=== PATIENT | male | born 1980 | race Caucasian/White ===

== ENCOUNTER 2017-10-30 15:22 | Inpatient (IN) | payer OTHER ==
[2017-10-30 16:35] LABS: HEMOGLOBIN 15.8 g/dl (14.0-18.0); MEAN CORPUSCULAR HEMOGLOBIN 30.7 pg (27.0-33.0); MEAN CORPUSCULAR HGB CONC 36.7 g/dl (32.0-36.5); MEAN CORPUSCULAR VOLUME 83.7 fl (80.0-96.0); PLATELET COUNT, AUTOMATED 458 10^3/uL (150-450); RED BLOOD COUNT 5.14 10^6/uL (4.30-6.10); RED CELL DISTRIBUTION WIDTH 11.6 % (11.5-14.5); WHITE BLOOD COUNT 13.5 10^3/uL (4.0-10.0)
[2017-10-30 17:05] LABS: ALBUMIN 4.7 GM/DL (3.2-5.2); ALBUMIN/GLOBULIN RATIO 1.09 (1.00-1.93); ALKALINE PHOSPHATASE 68 U/L (45-117); ALT/SGPT 25 U/L (12-78); ANION GAP 9 MEQ/L (8-16); AST/SGOT 18 U/L (7-37); BILIRUBIN,DIRECT 0.5 MG/DL (0.0-0.2); BILIRUBIN,TOTAL 1.7 MG/DL (0.2-1.0); BLOOD UREA NITROGEN 11 MG/DL (7-18); CALCIUM LEVEL 9.7 MG/DL (8.5-10.1); CARBON DIOXIDE LEVEL 29 MEQ/L (21-32); CHLORIDE LEVEL 99 MEQ/L (98-107); CREATININE FOR GFR 1.08 MG/DL (0.70-1.30); ETHYL ALCOHOL (ETHANOL) 0.003 % (0.000-0.010); GLOMERULAR FILTRATION RATE > 60.0 (>60); GLUCOSE, FASTING 91 MG/DL (70-105); POTASSIUM SERUM 3.3 MEQ/L (3.5-5.1); SODIUM LEVEL 137 MEQ/L (136-145)
[2017-10-30 17:16] LABS: ACETAMINOPHEN LEVEL < 2.0 UG/ML (10.0-30.0); SALICYLATE LEVEL < 1.7 MG/DL (5.0-30.0)
[2017-10-30 17:23] LABS: AMPHETAMINES LEVEL URINE NEGATIVE (NEGATIVE); BARBITURATES URINE NEGATIVE (NEGATIVE); BENZODIAZEPINES URINE NEGATIVE (NEGATIVE); CANNABINOIDS URINE NEGATIVE (NEGATIVE); COCAINE METABOLITE URINE NEGATIVE (NEGATIVE); METHADONE URINE NEGATIVE (NEGATIVE); OPIATES URINE NEGATIVE (NEGATIVE); PHENCYCLIDINE URINE NEGATIVE (NEGATIVE)
[2017-10-30] MEDS: POTASSIUM CHLORIDE 10 MEQ SR TABLET PO (17:45)
[2017-10-30] MEDS ORDERED: MAALOX 30 ML SUSP *UDC PO (18:45)
[2017-10-30] MEDS ORDERED: ACETAMINOPHEN TAB 650MG DOSE (2X325MG) PO (18:45)
[2017-10-30] MEDS ORDERED: MOM 30ML SUSPENSION UDC PO (18:45)
[2017-10-30] MEDS: traZODone 50 MG TAB PO (22:08)
[2017-10-31] MEDS: SERTRALINE HCL 50 MG TAB PO (10:14)
[2017-10-31] MEDS: clonazePAM 0.5 MG TAB PO ×2 (10:14→20:28)
[2017-10-31] MEDS: traZODone 50 MG TAB PO (20:29)
[2017-11-01] MEDS: clonazePAM 0.5 MG TAB PO ×3 (08:40→22:43)
[2017-11-01] MEDS: SERTRALINE HCL 50 MG TAB PO (08:40)
[2017-11-01] MEDS: INFLUENZA QUADRIVALENT PF VACCINE 0.5ML SYRINGE (90686) IM (08:41)
[2017-11-01] MEDS: traZODone 100 MG TAB PO (21:25)
[2017-11-01] MEDS: BLISTEX OINTMENT TOP (22:47)
[2017-11-02 07:32] LABS: ALBUMIN 3.4 GM/DL (3.2-5.2); ALBUMIN/GLOBULIN RATIO 0.92 (1.00-1.93); ALKALINE PHOSPHATASE 57 U/L (45-117); ALT/SGPT 21 U/L (12-78); ANION GAP 10 MEQ/L (8-16); AST/SGOT 10 U/L (7-37); BILIRUBIN,TOTAL 0.3 MG/DL (0.2-1.0); BLOOD UREA NITROGEN 13 MG/DL (7-18); CALCIUM LEVEL 8.4 MG/DL (8.5-10.1); CARBON DIOXIDE LEVEL 27 MEQ/L (21-32); CHLORIDE LEVEL 104 MEQ/L (98-107); CREATININE FOR GFR 0.88 MG/DL (0.70-1.30); GLOMERULAR FILTRATION RATE > 60.0 (>60); GLUCOSE, FASTING 99 MG/DL (70-105); POTASSIUM SERUM 3.4 MEQ/L (3.5-5.1); SODIUM LEVEL 141 MEQ/L (136-145); TOTAL PROTEIN 7.1 GM/DL (6.4-8.2)
[2017-11-02] MEDS: BLISTEX OINTMENT TOP ×4 (09:03→22:12)
[2017-11-02] MEDS: SERTRALINE HCL 50 MG TAB PO (09:03)
[2017-11-02] MEDS: clonazePAM 0.5 MG TAB PO ×3 (09:05→22:11)
[2017-11-02] MEDS: traZODone 100 MG TAB PO (22:11)
[2017-11-03] MEDS: BLISTEX OINTMENT TOP ×4 (08:59→20:29)
[2017-11-03] MEDS: SERTRALINE HCL 50 MG TAB PO (09:00)
[2017-11-03] MEDS: clonazePAM 0.5 MG TAB PO (09:39)
[2017-11-03] MEDS ORDERED: clonazePAM 0.5 MG TAB PO (13:15)
[2017-11-03] MEDS: clonazePAM 1 MG TAB PO ×2 (15:02→20:29)
[2017-11-03] MEDS: traZODone 100 MG TAB PO (20:29)
[2017-11-04] MEDS: clonazePAM 1 MG TAB PO ×2 (08:21→21:27)
[2017-11-04] MEDS: SERTRALINE HCL 50 MG TAB PO (08:22)
[2017-11-04] MEDS: BLISTEX OINTMENT TOP ×4 (08:22→21:27)
[2017-11-04] MEDS: traZODone 100 MG TAB PO (21:27)
[2017-11-04] MEDS: GABAPENTIN 300 MG CAP PO (21:27)
[2017-11-05] MEDS: BLISTEX OINTMENT TOP ×4 (09:26→20:58)
[2017-11-05] MEDS: GABAPENTIN 300 MG CAP PO ×2 (09:26→20:58)
[2017-11-05] MEDS: SERTRALINE HCL 50 MG TAB PO (09:26)
[2017-11-05] MEDS: clonazePAM 1 MG TAB PO ×2 (09:28→20:58)
[2017-11-05] MEDS: traZODone 100 MG TAB PO (20:58)
[2017-11-06] MEDS: GABAPENTIN 300 MG CAP PO ×2 (08:58→20:32)
[2017-11-06] MEDS: SERTRALINE 100 MG TAB PO (08:58)
[2017-11-06] MEDS: BLISTEX OINTMENT TOP ×4 (08:58→20:33)
[2017-11-06] MEDS: clonazePAM 1 MG TAB PO ×2 (08:58→20:32)
[2017-11-06] MEDS: traZODone 100 MG TAB PO (20:31)
[2017-11-07] MEDS: SERTRALINE 100 MG TAB PO (08:46)
[2017-11-07] MEDS: GABAPENTIN 300 MG CAP PO ×2 (08:46→21:00)
[2017-11-07] MEDS: clonazePAM 1 MG TAB PO (08:47)
[2017-11-07] MEDS: BLISTEX OINTMENT TOP ×4 (08:47→21:00)
[2017-11-07] MEDS: traZODone 100 MG TAB PO (21:00)
[2017-11-08] MEDS: SERTRALINE 100 MG TAB PO (08:02)
[2017-11-08] MEDS: GABAPENTIN 300 MG CAP PO ×2 (08:02→21:57)
[2017-11-08] MEDS: diphenhydrAMINE 50 MG CAP PO (08:02)
[2017-11-08] MEDS: BLISTEX OINTMENT TOP ×4 (08:02→22:30)
[2017-11-08] MEDS: clonazePAM 1 MG TAB PO ×2 (08:04→21:57)
[2017-11-08] MEDS: traZODone 100 MG TAB PO (21:57)
[2017-11-09] MEDS: SERTRALINE 100 MG TAB PO (08:18)
[2017-11-09] MEDS: GABAPENTIN 300 MG CAP PO (08:18)
[2017-11-09] MEDS: clonazePAM 1 MG TAB PO ×2 (08:19→21:00)
[2017-11-09] MEDS: BLISTEX OINTMENT TOP ×4 (08:30→21:00)
[2017-11-09] MEDS: diphenhydrAMINE 25 MG CAP PO ×2 (13:40→21:00)
[2017-11-09] MEDS ORDERED: diphenhydrAMINE 50 MG CAP PO (13:45)
[2017-11-09] MEDS: diphenhydrAMINE 50 MG CAP PO (16:09)
[2017-11-09] MEDS: traZODone 100 MG TAB PO (21:00)
[2017-11-10] MEDS: BLISTEX OINTMENT TOP ×4 (09:00→20:22)
[2017-11-10] MEDS: SERTRALINE 100 MG TAB PO (16:58)
[2017-11-10] MEDS: traZODone 100 MG TAB PO (20:23)
[2017-11-10] MEDS: clonazePAM 1 MG TAB PO (20:23)
[2017-11-10] MEDS: diphenhydrAMINE 25 MG CAP PO (21:15)
[2017-11-11] MEDS: SERTRALINE 100 MG TAB PO (09:00)
[2017-11-11] MEDS: BLISTEX OINTMENT TOP ×4 (09:00→20:43)
[2017-11-11] MEDS: guanFACINE 1 MG TAB PO (15:07)
[2017-11-11] MEDS: diphenhydrAMINE 25 MG CAP PO (19:03)
[2017-11-11] MEDS: traZODone 100 MG TAB PO (21:31)
[2017-11-11] MEDS: clonazePAM 1 MG TAB PO (21:31)
[2017-11-12] MEDS: BLISTEX OINTMENT TOP ×4 (08:52→20:32)
[2017-11-12] MEDS: FLUoxetine 10 MG CAP PO (11:42)
[2017-11-12] MEDS: guanFACINE 1 MG TAB PO (13:09)
[2017-11-12] MEDS: traZODone 100 MG TAB PO (20:31)
[2017-11-12] MEDS: clonazePAM 1 MG TAB PO (20:31)
[2017-11-13] MEDS: BLISTEX OINTMENT TOP ×4 (08:36→21:00)
[2017-11-13] MEDS: FLUoxetine 10 MG CAP PO (08:45)
[2017-11-13] MEDS: clonazePAM 1 MG TAB PO ×2 (08:47→22:11)
[2017-11-13] MEDS: guanFACINE 1 MG TAB PO (08:47)
[2017-11-13] MEDS: traZODone 100 MG TAB PO (21:59)
[2017-11-14] MEDS: FLUoxetine 10 MG CAP PO (08:17)
[2017-11-14] MEDS: guanFACINE 1 MG TAB PO (08:18)
[2017-11-14] MEDS: BLISTEX OINTMENT TOP ×4 (08:18→20:28)
[2017-11-14] MEDS: clonazePAM 1 MG TAB PO ×2 (09:05→20:13)
[2017-11-14] MEDS: traZODone 100 MG TAB PO (20:13)
[2017-11-14] MEDS ORDERED: HALOPERIDOL 5 MG/ML VIAL (J1630) As Ordered (23:41)
[2017-11-15] MEDS: FLUoxetine 10 MG CAP PO (08:04)
[2017-11-15] MEDS: BLISTEX OINTMENT TOP ×4 (08:05→20:34)
[2017-11-15] MEDS: guanFACINE 1 MG TAB PO (08:05)
[2017-11-15] MEDS: clonazePAM 1 MG TAB PO (11:19)
[2017-11-15] MEDS: traZODone 100 MG TAB PO (20:39)
[2017-11-16] MEDS: guanFACINE 1 MG TAB PO ×2 (09:00→10:22)
[2017-11-16] MEDS: FLUoxetine 10 MG CAP PO (10:21)
[2017-11-16] MEDS: BLISTEX OINTMENT TOP ×4 (10:22→21:00)
[2017-11-16] MEDS: clonazePAM 1 MG TAB PO ×2 (10:23→17:55)
[2017-11-16] MEDS: traZODone 100 MG TAB PO (21:45)
[2017-11-17] MEDS: BLISTEX OINTMENT TOP ×4 (09:00→21:35)
[2017-11-17] MEDS: guanFACINE 1 MG TAB PO (09:01)
[2017-11-17] MEDS: clonazePAM 1 MG TAB PO ×2 (09:01→21:33)
[2017-11-17] MEDS: FLUoxetine 10 MG CAP PO (09:01)
[2017-11-17] MEDS: traZODone 100 MG TAB PO (21:33)
[2017-11-18] MEDS: FLUoxetine 10 MG CAP PO (08:46)
[2017-11-18] MEDS: clonazePAM 1 MG TAB PO ×2 (08:46→21:14)
[2017-11-18] MEDS: guanFACINE 1 MG TAB PO (08:48)
[2017-11-18] MEDS: BLISTEX OINTMENT TOP ×4 (08:48→21:00)
[2017-11-18] MEDS: traZODone 100 MG TAB PO (21:14)
[2017-11-18] MEDS: PRAZOSIN 1 MG CAP PO (21:15)
[2017-11-19] MEDS: FLUoxetine 10 MG CAP PO (08:21)
[2017-11-19] MEDS: BLISTEX OINTMENT TOP ×4 (08:21→21:39)
[2017-11-19] MEDS: guanFACINE 1 MG TAB PO (08:21)
[2017-11-19] MEDS: clonazePAM 1 MG TAB PO ×2 (17:00→21:39)
[2017-11-19] MEDS: PRAZOSIN 1 MG CAP PO (21:39)
[2017-11-19] MEDS: traZODone 100 MG TAB PO (21:39)
[2017-11-20] MEDS: FLUoxetine 10 MG CAP PO (08:19)
[2017-11-20] MEDS: guanFACINE 1 MG TAB PO (08:21)
[2017-11-20] MEDS: BLISTEX OINTMENT TOP ×4 (08:22→20:44)
[2017-11-20] MEDS: clonazePAM 1 MG TAB PO (20:43)
[2017-11-20] MEDS: PRAZOSIN 1 MG CAP PO (20:43)
[2017-11-20] MEDS: traZODone 50 MG TAB PO (20:44)
[2017-11-21] MEDS: FLUoxetine 10 MG CAP PO (08:15)
[2017-11-21] MEDS: guanFACINE 1 MG TAB PO (08:15)
[2017-11-21] MEDS: BLISTEX OINTMENT TOP ×4 (08:16→21:00)
[2017-11-21] MEDS: METHYLPHENIDATE ER 18 MG TABLET (CONCERTA) PO (09:00)
[2017-11-21] MEDS: clonazePAM 1 MG TAB PO (21:39)
[2017-11-21] MEDS: traZODone 50 MG TAB PO (21:39)
[2017-11-21] MEDS: PRAZOSIN 1 MG CAP PO (21:41)
[2017-11-22] MEDS: FLUoxetine 10 MG CAP PO (09:06)
[2017-11-22] MEDS: METHYLPHENIDATE ER 18 MG TABLET (CONCERTA) PO (09:06)
[2017-11-22] MEDS: BLISTEX OINTMENT TOP ×4 (09:06→21:00)
[2017-11-22] MEDS: guanFACINE 1 MG TAB PO (09:07)
[2017-11-22] MEDS: traZODone 50 MG TAB PO (21:23)
[2017-11-22] MEDS: PRAZOSIN 1 MG CAP PO (21:24)
[2017-11-22] MEDS: clonazePAM 1 MG TAB PO (21:25)
[2017-11-23] MEDS: BLISTEX OINTMENT TOP (09:08)
[2017-11-23] MEDS: FLUoxetine 10 MG CAP PO (09:08)
[2017-11-23] MEDS: METHYLPHENIDATE ER 18 MG TABLET (CONCERTA) PO (09:08)
== END 2017-11-23 13:10 | disposition home or self-care (01) | DRG 882 ==
LOC: M ED 15:22 → M ED INP 18:31 → M PSY 19:14
DX: F43.23 Adjustment disorder with mixed anxiety and depressed mood (principal); G47.00 Insomnia, unspecified; F10.10 Alcohol abuse, uncomplicated; F41.9 Anxiety disorder, unspecified; R21 Rash and other nonspecific skin eruption; F19.10 Other psychoactive substance abuse, uncomplicated; Z56.0 Unemployment, unspecified; Z63.5 Disruption of family by separation and divorce; F43.25 Adjustment disorder with mixed disturbance of emotions and conduct; F43.10 Post-traumatic stress disorder, unspecified

== ENCOUNTER 2017-12-04 17:18 | Inpatient (IN) | payer OTHER ==
[2017-12-04] MEDS: NS 1,000 ML IV (18:11)
[2017-12-04 18:22] LABS: HEMATOCRIT 36.3 % (42.0-52.0); HEMOGLOBIN 12.7 g/dl (14.0-18.0); MEAN CORPUSCULAR HEMOGLOBIN 30.9 pg (27.0-33.0); MEAN CORPUSCULAR VOLUME 88.3 fl (80.0-96.0); PLATELET COUNT, AUTOMATED 223 10^3/uL (150-450); RED BLOOD COUNT 4.11 10^6/uL (4.30-6.10); VENOUS BASE EXCESS 1.2 (-2.0-2.0); VENOUS HCO3 26.5 MEQ/L (23.0-27.0); VENOUS O2 SATURATION 88.7 % (60.0-80.0); VENOUS PARTIAL PRESSURE CO2 44.5 mmHg (38.0-50.0); VENOUS PH 7.392 UNITS (7.330-7.430); VENOUS STANDARD HCO3 25.3 MEQ/L; VENOUS TOTAL CO2 27.8 MEQ/L (24.0-28.0); WHITE BLOOD COUNT 4.9 10^3/uL (4.0-10.0)
[2017-12-04 18:43] LABS: OSMOLALITY SERUM 286 MOSM/KG (275-295)
[2017-12-04 18:50] LABS: ALBUMIN 4.7 GM/DL (3.2-5.2); ALBUMIN/GLOBULIN RATIO 1.52 (1.00-1.93); ALKALINE PHOSPHATASE 51 U/L (45-117); ALT/SGPT 16 U/L (12-78); ANION GAP 10 MEQ/L (8-16); AST/SGOT 12 U/L (7-37); BILIRUBIN,DIRECT 0.2 MG/DL (0.0-0.2); BILIRUBIN,TOTAL 0.4 MG/DL (0.2-1.0); BLOOD UREA NITROGEN 6 MG/DL (7-18); CALCIUM LEVEL 8.8 MG/DL (8.5-10.1); CARBON DIOXIDE LEVEL 27 MEQ/L (21-32); CHLORIDE LEVEL 105 MEQ/L (98-107); CPK CREATINE PHOSPHOKINASE 133 U/L (39-308); CREATININE FOR GFR 0.94 MG/DL (0.70-1.30); GLOMERULAR FILTRATION RATE > 60.0 (>60); GLUCOSE, FASTING 120 MG/DL (70-105); SALICYLATE LEVEL < 1.7 MG/DL (5.0-30.0); SODIUM LEVEL 142 MEQ/L (136-145); THYROID STIMULATING HORMONE 0.976 uIU/ML (0.358-3.740); TOTAL PROTEIN 7.8 GM/DL (6.4-8.2)
[2017-12-04 19:00] LABS: ACETAMINOPHEN LEVEL < 2.0 UG/ML (10.0-30.0); ETHYL ALCOHOL (ETHANOL) < 0.003 % (0.000-0.010)
[2017-12-04 19:01] LABS: POTASSIUM SERUM 2.6 MEQ/L (3.5-5.1)
[2017-12-04 19:10] LABS: AMPHETAMINES LEVEL URINE NEGATIVE (NEGATIVE); BARBITURATES URINE NEGATIVE (NEGATIVE); BENZODIAZEPINES URINE NEGATIVE (NEGATIVE); CANNABINOIDS URINE NEGATIVE (NEGATIVE); COCAINE METABOLITE URINE NEGATIVE (NEGATIVE); METHADONE URINE NEGATIVE (NEGATIVE); OPIATES URINE NEGATIVE (NEGATIVE); PHENCYCLIDINE URINE NEGATIVE (NEGATIVE)
[2017-12-04] MEDS: POTASSIUM CHLORIDE 10 MEQ SR TABLET PO (19:14)
[2017-12-04] MEDS ORDERED: ACETAMINOPHEN TAB 650MG DOSE (2X325MG) PO (20:00)
[2017-12-04] MEDS ORDERED: ONDANSETRON 4MG/2ML VIAL (J2405) IV (20:00)
[2017-12-04] MEDS: DOCUSATE SODIUM 100 MG CAP PO (21:00)
[2017-12-04 21:16] LABS: ALBUMIN 4.2 GM/DL (3.2-5.2); ANION GAP 5 MEQ/L (8-16); BLOOD UREA NITROGEN 5 MG/DL (7-18); CALCIUM LEVEL 8.7 MG/DL (8.5-10.1); CARBON DIOXIDE LEVEL 29 MEQ/L (21-32); CHLORIDE LEVEL 108 MEQ/L (98-107); CREATININE FOR GFR 0.77 MG/DL (0.70-1.30); GLOMERULAR FILTRATION RATE > 60.0 (>60); GLUCOSE, FASTING 74 MG/DL (70-105); POTASSIUM SERUM 3.4 MEQ/L (3.5-5.1); SODIUM LEVEL 142 MEQ/L (136-145)
[2017-12-05] MEDS: POTASSIUM CHLORIDE 10 MEQ SR TABLET PO (01:44)
[2017-12-05 07:18] LABS: HEMATOCRIT 36.4 % (42.0-52.0); HEMOGLOBIN 12.3 g/dl (14.0-18.0); MEAN CORPUSCULAR HEMOGLOBIN 29.9 pg (27.0-33.0); MEAN CORPUSCULAR HGB CONC 33.8 g/dl (32.0-36.5); MEAN CORPUSCULAR VOLUME 88.3 fl (80.0-96.0); PLATELET COUNT, AUTOMATED 253 10^3/uL (150-450); RED BLOOD COUNT 4.12 10^6/uL (4.30-6.10); RED CELL DISTRIBUTION WIDTH 12.4 % (11.5-14.5); WHITE BLOOD COUNT 8.4 10^3/uL (4.0-10.0)
[2017-12-05 07:53] LABS: ANION GAP 6 MEQ/L (8-16); BLOOD UREA NITROGEN 5 MG/DL (7-18); CALCIUM LEVEL 8.7 MG/DL (8.5-10.1); CARBON DIOXIDE LEVEL 30 MEQ/L (21-32); CHLORIDE LEVEL 109 MEQ/L (98-107); CREATININE FOR GFR 0.92 MG/DL (0.70-1.30); GLOMERULAR FILTRATION RATE > 60.0 (>60); GLUCOSE, FASTING 77 MG/DL (70-105); POTASSIUM SERUM 3.9 MEQ/L (3.5-5.1); SODIUM LEVEL 145 MEQ/L (136-145)
[2017-12-05] MEDS: DOCUSATE SODIUM 100 MG CAP PO ×2 (08:50→20:25)
[2017-12-05] MEDS: ENOXAPARIN 40 MG/0.4 ML SYRINGE (J1650) SC (08:51)
[2017-12-06 05:29] LABS: HEMATOCRIT 38.7 % (42.0-52.0); HEMOGLOBIN 12.9 g/dl (14.0-18.0); MEAN CORPUSCULAR HEMOGLOBIN 30.8 pg (27.0-33.0); MEAN CORPUSCULAR HGB CONC 33.3 g/dl (32.0-36.5); MEAN CORPUSCULAR VOLUME 92.4 fl (80.0-96.0); PLATELET COUNT, AUTOMATED 237 10^3/uL (150-450); RED BLOOD COUNT 4.19 10^6/uL (4.30-6.10); RED CELL DISTRIBUTION WIDTH 12.6 % (11.5-14.5); WHITE BLOOD COUNT 6.8 10^3/uL (4.0-10.0)
[2017-12-06 05:46] LABS: ANION GAP 4 MEQ/L (8-16); BLOOD UREA NITROGEN 14 MG/DL (7-18); CALCIUM LEVEL 8.9 MG/DL (8.5-10.1); CARBON DIOXIDE LEVEL 33 MEQ/L (21-32); CHLORIDE LEVEL 105 MEQ/L (98-107); CREATININE FOR GFR 1.13 MG/DL (0.70-1.30); GLOMERULAR FILTRATION RATE > 60.0 (>60); GLUCOSE, FASTING 97 MG/DL (70-105); POTASSIUM SERUM 4.1 MEQ/L (3.5-5.1); SODIUM LEVEL 142 MEQ/L (136-145)
[2017-12-06] MEDS: ENOXAPARIN 40 MG/0.4 ML SYRINGE (J1650) SC (09:00)
[2017-12-06] MEDS: DOCUSATE SODIUM 100 MG CAP PO ×2 (09:00→20:38)
== END 2017-12-06 22:07 | DRG 918 ==
LOC: M PCU 12-05 15:20 → M ED 17:18 → M ED INP 20:00
DX: T43.212A Poisoning by selective serotonin and norepinephrine reuptake inhibitors, intentional self-harm, initial encounter (principal); T44.6X2A Poisoning by alpha-adrenoreceptor antagonists, intentional self-harm, initial encounter; F43.21 Adjustment disorder with depressed mood; F43.10 Post-traumatic stress disorder, unspecified; F43.24 Adjustment disorder with disturbance of conduct; E87.6 Hypokalemia; Z79.899 Other long term (current) drug therapy; Y92.009 Unspecified place in unspecified non-institutional (private) residence as the place of occurrence of the external cause

== ENCOUNTER 2017-12-06 22:08 | Inpatient (IN) | payer OTHER, SELFPAY ==
[2017-12-06] MEDS: PRAZOSIN 1 MG CAP PO ×2 (21:00)
[2017-12-07] MEDS ORDERED: clonazePAM 0.5 MG TAB PO ×2 (00:15)
[2017-12-07] MEDS ORDERED: MOM 30ML SUSPENSION UDC PO ×2 (00:15)
[2017-12-07] MEDS ORDERED: MAALOX 30 ML SUSP *UDC PO ×2 (00:15)
[2017-12-07] MEDS: METHYLPHENIDATE ER 18 MG TABLET (CONCERTA) PO ×2 (09:00)
[2017-12-07] MEDS: FLUoxetine 10 MG CAP PO ×2 (09:00)
[2017-12-07] MEDS: busPIRone 5 MG TAB PO ×6 (10:22→21:14)
[2017-12-07] MEDS: buPROPion **XL** TABLET 150MG (WELLBUTRIN XL) PO ×2 (10:22)
[2017-12-07] MEDS: traZODone 50 MG TAB PO ×2 (21:14)
[2017-12-07] MEDS: PRAZOSIN 1 MG CAP PO ×2 (21:14)
[2017-12-08] MEDS: busPIRone 5 MG TAB PO ×6 (08:17→21:18)
[2017-12-08] MEDS: buPROPion **XL** TABLET 150MG (WELLBUTRIN XL) PO ×2 (08:17)
[2017-12-08] MEDS: **PENDING PPD ENTRY XX ×2 (09:00)
[2017-12-08] MEDS ORDERED: TUBERCULIN PPD 5 UNITS/0.1 ML ID ×2 (10:45)
[2017-12-08] MEDS: PRAZOSIN 1 MG CAP PO ×2 (21:18)
[2017-12-08] MEDS: traZODone 50 MG TAB PO ×2 (22:14)
[2017-12-09] MEDS: busPIRone 5 MG TAB PO ×6 (08:26→21:22)
[2017-12-09] MEDS: buPROPion **XL** TABLET 150MG (WELLBUTRIN XL) PO ×2 (08:26)
[2017-12-09] MEDS: VITAMIN D (CHOLECALCIFEROL) 400 INTERNATIONAL UNITS TAB PO ×2 (09:00)
[2017-12-09] MEDS: **PENDING PPD ENTRY XX ×4 (09:00)
[2017-12-09] MEDS: TUBERCULIN PPD 5 UNITS/0.1 ML ID ×2 (11:17)
[2017-12-09 12:11] LABS: ANION GAP 7 MEQ/L (8-16); BLOOD UREA NITROGEN 13 MG/DL (7-18); CALCIUM LEVEL 9.4 MG/DL (8.5-10.1); CARBON DIOXIDE LEVEL 32 MEQ/L (21-32); CHLORIDE LEVEL 102 MEQ/L (98-107); CREATININE FOR GFR 0.88 MG/DL (0.70-1.30); GLOMERULAR FILTRATION RATE > 60.0 (>60); GLUCOSE, FASTING 72 MG/DL (70-100); POTASSIUM SERUM 4.2 MEQ/L (3.5-5.1); SODIUM LEVEL 141 MEQ/L (136-145)
[2017-12-09 12:27] LABS: VITAMIN B12 LEVEL 403 PG/ML (247-911)
[2017-12-09] MEDS: NEPHRO-VIT TAB (NEPHROCAPS) PO ×2 (16:35)
[2017-12-09] MEDS: traZODone 50 MG TAB PO ×2 (21:22)
[2017-12-09] MEDS: PRAZOSIN 1 MG CAP PO ×2 (21:22)
[2017-12-10] MEDS: NEPHRO-VIT TAB (NEPHROCAPS) PO ×2 (08:13)
[2017-12-10] MEDS: VITAMIN D 50,000 UNITS CAPSULE (ERGOCALCIFEROL 1.25MG) PO ×2 (08:13)
[2017-12-10] MEDS: buPROPion **XL** TABLET 150MG (WELLBUTRIN XL) PO ×2 (08:13)
[2017-12-10] MEDS: busPIRone 5 MG TAB PO ×6 (08:13→21:30)
[2017-12-10] MEDS ORDERED: PPD DOCUMENTATION ENTRY MISC XX ×2 (10:00)
[2017-12-10] MEDS: traZODone 50 MG TAB PO ×2 (21:30)
[2017-12-10] MEDS: PRAZOSIN 1 MG CAP PO ×2 (21:30)
[2017-12-11] MEDS: NEPHRO-VIT TAB (NEPHROCAPS) PO ×2 (08:32)
[2017-12-11] MEDS: busPIRone 5 MG TAB PO ×6 (08:32→21:46)
[2017-12-11] MEDS: buPROPion **XL** TABLET 150MG (WELLBUTRIN XL) PO ×2 (08:32)
[2017-12-11] MEDS: PPD DOCUMENTATION ENTRY MISC XX ×2 (11:32)
[2017-12-11] MEDS: traZODone 50 MG TAB PO ×2 (21:46)
[2017-12-11] MEDS: PRAZOSIN 1 MG CAP PO ×2 (21:47)
[2017-12-12] MEDS: NEPHRO-VIT TAB (NEPHROCAPS) PO ×2 (08:41)
[2017-12-12] MEDS: buPROPion **XL** TABLET 150MG (WELLBUTRIN XL) PO ×2 (08:41)
[2017-12-12] MEDS: busPIRone 5 MG TAB PO ×6 (08:42→21:33)
[2017-12-12] MEDS: PRAZOSIN 1 MG CAP PO ×2 (21:34)
[2017-12-12] MEDS: traZODone 50 MG TAB PO ×2 (22:51)
[2017-12-13] MEDS: NEPHRO-VIT TAB (NEPHROCAPS) PO ×2 (08:42)
[2017-12-13] MEDS: buPROPion **XL** TABLET 150MG (WELLBUTRIN XL) PO ×2 (08:42)
[2017-12-13] MEDS: busPIRone 5 MG TAB PO ×6 (08:42→20:37)
[2017-12-13] MEDS: PRAZOSIN 1 MG CAP PO ×2 (20:37)
[2017-12-13] MEDS: traZODone 50 MG TAB PO ×2 (20:38)
[2017-12-14] MEDS: busPIRone 5 MG TAB PO ×6 (08:50→21:11)
[2017-12-14] MEDS: NEPHRO-VIT TAB (NEPHROCAPS) PO ×2 (08:50)
[2017-12-14] MEDS: buPROPion **XL** TABLET 150MG (WELLBUTRIN XL) PO ×2 (08:50)
[2017-12-14] MEDS ORDERED: clonazePAM 0.5 MG TAB PO ×2 (11:15)
[2017-12-14] MEDS: EUCERIN 120GM CREAM EXT ×2 (12:31)
[2017-12-14] MEDS: PRAZOSIN 1 MG CAP PO ×2 (21:12)
[2017-12-14] MEDS: traZODone 100 MG TAB PO ×2 (22:13)
[2017-12-15] MEDS: NEPHRO-VIT TAB (NEPHROCAPS) PO ×2 (08:03)
[2017-12-15] MEDS: buPROPion **XL** TABLET 150MG (WELLBUTRIN XL) PO ×2 (08:03)
[2017-12-15] MEDS: busPIRone 5 MG TAB PO ×6 (08:04→20:25)
[2017-12-15] MEDS: traZODone 100 MG TAB PO ×2 (22:30)
[2017-12-15] MEDS: PRAZOSIN 1 MG CAP PO ×2 (22:30)
[2017-12-16] MEDS: NEPHRO-VIT TAB (NEPHROCAPS) PO ×2 (08:04)
[2017-12-16] MEDS: buPROPion **XL** TABLET 150MG (WELLBUTRIN XL) PO ×2 (08:04)
[2017-12-16] MEDS: busPIRone 5 MG TAB PO ×6 (08:04→21:50)
[2017-12-16] MEDS: PRAZOSIN 1 MG CAP PO ×2 (21:50)
[2017-12-16] MEDS: traZODone 100 MG TAB PO ×2 (21:50)
[2017-12-17] MEDS: busPIRone 5 MG TAB PO ×2 (08:06)
[2017-12-17] MEDS: VITAMIN D 50,000 UNITS CAPSULE (ERGOCALCIFEROL 1.25MG) PO ×2 (08:06)
[2017-12-17] MEDS: buPROPion **XL** TABLET 150MG (WELLBUTRIN XL) PO ×2 (08:06)
[2017-12-17] MEDS: NEPHRO-VIT TAB (NEPHROCAPS) PO ×2 (08:06)
[2017-12-17] MEDS: busPIRone 10 MG TAB PO ×4 (16:34→21:59)
[2017-12-17] MEDS: ACETAMINOPHEN TAB 650MG DOSE (2X325MG) PO ×2 (18:53)
[2017-12-17] MEDS: traZODone 100 MG TAB PO ×2 (21:59)
[2017-12-17] MEDS: PRAZOSIN 1 MG CAP PO ×2 (21:59)
[2017-12-18] MEDS: buPROPion **XL** TABLET 150MG (WELLBUTRIN XL) PO ×2 (08:08)
[2017-12-18] MEDS: NEPHRO-VIT TAB (NEPHROCAPS) PO ×2 (08:08)
[2017-12-18] MEDS: busPIRone 10 MG TAB PO ×6 (08:08→21:25)
[2017-12-18 08:25] LABS: ALBUMIN/GLOBULIN RATIO 1.25 (1.00-1.93); ALKALINE PHOSPHATASE 48 U/L (45-117); ALT/SGPT 27 U/L (12-78); ANION GAP 8 MEQ/L (8-16); AST/SGOT 14 U/L (7-37); BILIRUBIN,TOTAL 0.3 MG/DL (0.2-1.0); BLOOD UREA NITROGEN 18 MG/DL (7-18); CALCIUM LEVEL 8.6 MG/DL (8.5-10.1); CARBON DIOXIDE LEVEL 27 MEQ/L (21-32); CHLORIDE LEVEL 105 MEQ/L (98-107); CREATININE FOR GFR 0.86 MG/DL (0.70-1.30); GLOMERULAR FILTRATION RATE > 60.0 (>60); GLUCOSE, FASTING 85 MG/DL (70-100); POTASSIUM SERUM 4.1 MEQ/L (3.5-5.1); SODIUM LEVEL 140 MEQ/L (136-145); TOTAL PROTEIN 7.2 GM/DL (6.4-8.2)
[2017-12-18] MEDS: traZODone 100 MG TAB PO ×2 (21:25)
[2017-12-18] MEDS: PRAZOSIN 1 MG CAP PO ×2 (21:26)
[2017-12-19] MEDS: buPROPion **XL** TABLET 150MG (WELLBUTRIN XL) PO ×2 (08:52)
[2017-12-19] MEDS: busPIRone 10 MG TAB PO ×6 (08:52→20:02)
[2017-12-19] MEDS: NEPHRO-VIT TAB (NEPHROCAPS) PO ×2 (08:52)
[2017-12-19] MEDS: PRAZOSIN 1 MG CAP PO ×2 (20:02)
[2017-12-19] MEDS: traZODone 100 MG TAB PO ×2 (22:13)
[2017-12-20] MEDS: NEPHRO-VIT TAB (NEPHROCAPS) PO ×2 (08:21)
[2017-12-20] MEDS: buPROPion **XL** TABLET 150MG (WELLBUTRIN XL) PO ×2 (08:21)
[2017-12-20] MEDS: busPIRone 10 MG TAB PO ×6 (08:22→21:26)
[2017-12-20] MEDS: traZODone 100 MG TAB PO ×2 (21:26)
[2017-12-20] MEDS: PRAZOSIN 1 MG CAP PO ×2 (21:26)
[2017-12-21] MEDS: buPROPion **XL** TABLET 150MG (WELLBUTRIN XL) PO ×2 (08:36)
[2017-12-21] MEDS: busPIRone 10 MG TAB PO ×2 (08:36)
[2017-12-21] MEDS: NEPHRO-VIT TAB (NEPHROCAPS) PO ×2 (08:36)
== END 2017-12-21 11:25 | disposition home or self-care (01) | DRG 885 ==
LOC: M PSY 22:08
DX: F32.2 Major depressive disorder, single episode, severe without psychotic features (principal); F43.10 Post-traumatic stress disorder, unspecified; E55.9 Vitamin D deficiency, unspecified; Z63.0 Problems in relationship with spouse or partner

== ENCOUNTER 2018-01-30 14:47 | Inpatient (IN) | payer OTHER, SELFPAY ==
[2018-01-30 15:57] LABS: HEMATOCRIT 41.8 % (42.0-52.0); HEMOGLOBIN 14.7 g/dl (14.0-18.0); MEAN CORPUSCULAR HEMOGLOBIN 30.8 pg (27.0-33.0); MEAN CORPUSCULAR HGB CONC 35.2 g/dl (32.0-36.5); MEAN CORPUSCULAR VOLUME 87.6 fl (80.0-96.0); PLATELET COUNT, AUTOMATED 280 10^3/uL (150-450); RED BLOOD COUNT 4.77 10^6/uL (4.30-6.10); WHITE BLOOD COUNT 7.6 10^3/uL (4.0-10.0)
[2018-01-30 16:26] LABS: AMPHETAMINES LEVEL URINE NEGATIVE (NEGATIVE); BARBITURATES URINE NEGATIVE (NEGATIVE); BENZODIAZEPINES URINE NEGATIVE (NEGATIVE); CANNABINOIDS URINE NEGATIVE (NEGATIVE); COCAINE METABOLITE URINE NEGATIVE (NEGATIVE); METHADONE URINE NEGATIVE (NEGATIVE); OPIATES URINE NEGATIVE (NEGATIVE); PHENCYCLIDINE URINE NEGATIVE (NEGATIVE)
[2018-01-30 16:27] LABS: ALBUMIN 4.4 GM/DL (3.2-5.2); ALBUMIN/GLOBULIN RATIO 1.26 (1.00-1.93); ALKALINE PHOSPHATASE 56 U/L (45-117); ALT/SGPT 38 U/L (12-78); ANION GAP 9 MEQ/L (8-16); AST/SGOT 16 U/L (7-37); BILIRUBIN,DIRECT 0.1 MG/DL (0.0-0.2); BILIRUBIN,TOTAL 0.5 MG/DL (0.2-1.0); BLOOD UREA NITROGEN 16 MG/DL (7-18); CARBON DIOXIDE LEVEL 28 MEQ/L (21-32); CHLORIDE LEVEL 102 MEQ/L (98-107); CREATININE FOR GFR 0.91 MG/DL (0.70-1.30); ETHYL ALCOHOL (ETHANOL) < 0.003 % (0.000-0.010); GLOMERULAR FILTRATION RATE > 60.0 (>60); GLUCOSE, FASTING 88 MG/DL (70-100); POTASSIUM SERUM 4.4 MEQ/L (3.5-5.1); SALICYLATE LEVEL < 1.7 MG/DL (5.0-30.0); SODIUM LEVEL 139 MEQ/L (136-145); TOTAL PROTEIN 7.9 GM/DL (6.4-8.2)
[2018-01-30 16:29] LABS: ACETAMINOPHEN LEVEL < 2.0 UG/ML (10.0-30.0)
[2018-01-30] MEDS ORDERED: MAALOX 30 ML SUSP *UDC PO ×3 (17:00)
[2018-01-30] MEDS ORDERED: MOM 30ML SUSPENSION UDC PO ×3 (17:00)
[2018-01-30] MEDS ORDERED: ACETAMINOPHEN TAB 650MG DOSE (2X325MG) PO ×3 (17:00)
[2018-01-30] MEDS: traZODone 50 MG TAB PO ×3 (23:20)
[2018-01-31] MEDS: buPROPion 100 MG TAB PO ×3 (15:11)
[2018-01-31] MEDS: busPIRone 5 MG TAB PO ×6 (15:11→22:11)
[2018-01-31] MEDS: traZODone 50 MG TAB PO ×3 (22:11)
[2018-01-31] MEDS: PRAZOSIN 1 MG CAP PO ×3 (22:12)
[2018-02-01] MEDS: busPIRone 5 MG TAB PO ×9 (08:28→21:47)
[2018-02-01] MEDS: buPROPion 100 MG TAB PO ×3 (08:28)
[2018-02-01] MEDS: traZODone 50 MG TAB PO ×3 (21:46)
[2018-02-01] MEDS: PRAZOSIN 1 MG CAP PO ×3 (21:47)
[2018-02-02] MEDS: busPIRone 5 MG TAB PO ×9 (08:08→22:14)
[2018-02-02] MEDS: buPROPion 100 MG TAB PO ×3 (08:08)
[2018-02-02] MEDS: traZODone 50 MG TAB PO ×3 (22:13)
[2018-02-02] MEDS: PRAZOSIN 1 MG CAP PO ×3 (22:14)
[2018-02-03] MEDS: busPIRone 5 MG TAB PO ×9 (08:28→21:08)
[2018-02-03] MEDS: buPROPion 100 MG TAB PO ×3 (08:28)
[2018-02-03] MEDS: traZODone 50 MG TAB PO ×3 (21:08)
[2018-02-03] MEDS: PRAZOSIN 1 MG CAP PO ×3 (21:10)
[2018-02-04] MEDS: busPIRone 5 MG TAB PO ×9 (08:08→22:12)
[2018-02-04] MEDS: buPROPion 100 MG TAB PO ×3 (08:08)
[2018-02-04] MEDS: traZODone 50 MG TAB PO ×3 (22:12)
[2018-02-04] MEDS: PRAZOSIN 1 MG CAP PO ×3 (22:13)
[2018-02-05] MEDS: buPROPion 100 MG TAB PO ×3 (08:25)
[2018-02-05] MEDS: busPIRone 5 MG TAB PO ×3 (08:25)
== END 2018-02-05 12:30 | disposition home or self-care (01) | DRG 885 ==
LOC: M ED 14:47 → M ED INP 16:50 → M PSY 18:00
DX: F33.2 Major depressive disorder, recurrent severe without psychotic features (principal); Z91.14 Patient's other noncompliance with medication regimen